=== PATIENT | female | born 1985 | race Caucasian/White ===

== ENCOUNTER → 2021-06-08 08:23 | Outpatient (CLI) | payer OTHER, SELFPAY ==
--- NOTE | ~2021-06-08 | US_ITS ---
EXAMINATION: US thyroid DATE: 06/08/2021 08:36 INDICATION: Nontoxic single thyroid nodule. TECHNIQUE: Multiple ultrasound images of the thyroid were obtained. COMPARISON: None. FINDINGS: The right thyroid lobe measures 4.9 x 1.3 x 1.4 cm. The left thyroid lobe measures 5.0 x 1.0 x 2.0 c m. In the right thyroid lobe, there is a 4 mm nodule. IMPRESSION: 1. Small thyroid nodule, likely not clinically significant. No follow-up is needed. Reviewed, dictated and finalized at location A. [employer] IMPRESSION: 1. Small thyroid nodule, likely not clinically significant. No follow-up is nee ded.
== END ==
PROVIDERS: PCP Nurse Practitioner Adult Health; Visit Provider Nurse Practitioner Adult Health
DX: E04.1 Nontoxic single thyroid nodule (principal)
CPT/HCPCS: 76536

== ENCOUNTER → 2022-05-17 09:10 | Outpatient (CLI) | payer OTHER, SELFPAY ==
--- NOTE | ~2022-05-17 | CT_ITS ---
EXAMINATION: CT sinus wo con DATE: 05/17/2022 09:24 INDICATION: Sinusitis TECHNIQUE: Computed tomography (CT) of the paranasal sinuses was performed without intravenous contra st. The dose-length product was 288.85 mGy-cm. Automated exposure control and iterative reconstructio n technique were employed. COMPARISON: None FINDINGS: There are small air-fluid levels within the maxillary sinuses bilaterally. Minimal mucosal thickening of the sphenoid sinuses. Rightward nasal septal deviation. Mastoids are pneumatized. Ostio meatal units are patent. IMPRESSION: 1. Mild sinusitis, mainly affecting the maxillary sinuses, possibly acute. Reviewed, dictated and finalized at location B.
== END ==
PROVIDERS: PCP Nurse Practitioner Adult Health; Visit Provider Otolaryngology
DX: J32.9 Chronic sinusitis, unspecified (principal)
CPT/HCPCS: 70486

== ENCOUNTER 2022-07-16 11:39 | Emergency (ER) | payer OTHER, SELFPAY ==
[2022-07-16 11:52] VITALS: BP 118/59; PULSE 70; RESP 16; TEMP 36.3; O2SAT 99
--- NOTE | 2022-07-16 12:46 | ED.URI ---
HPI - URI/Sore Throat General Chief Complaint: Upper Respiratory Infection Stated Complaint: Sinus/ Ears Irritation Time Seen by Provider: 07/16/22 12:48 Source: patient, RN notes reviewed and old records reviewed Mode of arrival: ambulatory Limitations: no limitations History of Present Illness HPI Narrative: 37-year-old female presents to the [facility] with complaints sinus pressure and ear discomfort for 4 days. States that she wants to be better by Monday when she travels to [place]. Has a history of chronic sinus issues. Started taking Zyrtec a couple of days ago. States that she has used her Flonase. Related Data Home Medications Medication Instructions Recorded Confirmed Fish Oil 1,290 mg PO DAILY 07/10/19 04/26/22 Lactobacillus rhamnosus GG 10 1 cap PO DAILY 07/10/19 04/26/22 billion cell capsule (Culturelle) multivit with minerals-iron 18 1 tablet PO DAILY 07/10/19 04/26/22 mg-folic ac 400 mcg-vit K 25 mcg tablet (Multi-Day Plus Minerals) Allergies Allergy/AdvReac Type Severity Reaction Status Date / Time No Known Allergies Allergy Mild Verified 04/26/22 10:43 Review of Systems Review of Systems: All systems reviewed & are unremarkable except as noted in HPI and below Constitutional: Constitutional: Reports no additional constitutional complaints Eyes: Eyes: Reports no additional eye complaints ENT: Reports as per HPI, Reports otalgia and Reports nasal congestion Cardiovascular: Cardiovascular: Reports no additional cardiovascular complaints, Denies chest pain and Denies dyspnea Respiratory: Respiratory: Reports no additional respiratory complaints, Denies chest congestion, Denies cough and Denies dyspnea Gastrointestinal: Gastrointestinal: Reports no additional gastrointestinal complaints, Denies abdominal pain, Denies nausea and Denies vomiting Musculoskeletal: Musculoskeletal: Reports no additional musculoskeletal complaints Integumentary/Breasts: Skin/Breast: Reports system reviewed and no additional complaints, except as docu Neurologic: Reports system reviewed and no additional complaints, except as documented Psychiatric: Psychiatric: Reports no additional psychiatric complaints Allergic/Immunologic: Allergic/Immunologic: Reports no additional allergic/immunologic complaints PMFSH Past Medical History Medical History GERD (gastroesophageal reflux disease) Obesity Social History Social History Smoking status: Never smoker Alcohol intake: never Substance use: never Comments At the time of my signature, I reviewed and agree with the nursing past medical, surgical, social, and family history. There is no relevant family history pertinent to the patient complaint. Exam Const: General: cooperative, healthy appearing, comfortable, no acute distress, well developed, alert and well nourished Nutritional Appearance: well nourished Orientation/consciousness: patient oriented x3 Limitations: no limitations HENMT: Head: normal to inspection Ears: hearing grossly normal bilaterally, external ears normal and TM abnormal with fluid behind the TM bilateral; not bulging, not bullous, not dull, not with effusion and not erythematous Face/Nose/Sinus: Normal external nose present, Normal nares present, Normal nasal mucous membranes and turbinates present and normal facial exam Face and sinus: normal facial exam Mouth: Yes Normal oral and palatal mucosa present, Yes lip normal and Yes moist mucous membranes Throat: posterior oropharynx normal, uvula midline, postnasal drainage and no uvular edema Eyes: General: appearance normal, both eyes and all related structures Alignment and Position: alignment normal Periorbital: periorbital findings normal Conjunctivae: conjunctivae normal Pupils: Equal, round and reactive pupils present EOM: EOMs intact bilaterally Neck: Neck: n
== END 2022-07-16 13:03 | disposition home or self-care (01) ==
PROVIDERS: Emergency Provider Nurse Practitioner; PCP Nurse Practitioner Adult Health
DX: J32.9 Chronic sinusitis, unspecified (principal); K21.9 Gastro-esophageal reflux disease without esophagitis; E66.9 Obesity, unspecified; Z68.29 Body mass index [BMI] 29.0-29.9, adult
CPT/HCPCS: 99213; G0463

== ENCOUNTER 2022-08-19 03:48 | Day surgery (SDC) | payer OTHER, SELFPAY ==
[2022-08-09 10:21] VITALS: BMI 29.0
--- NOTE | 2022-08-09 10:40 | PC.NURSE ---
Report to the Outpatient Waiting Room, entrance under the green pavilion located off [facility] [place], at 0830 on 08-19-22. Planned Procedure Time: 1030. Time changes happen often and if your time is changed the preop area will call you the afternoon before. - You and your visitor will be asked to self-screen and do not enter if you have any COVID symptoms. - Only one visitor is requested with a max of two and NO children visitors are allowed at this time. - The patient visitor may be requested to leave or wait in car when not with patient due to distancing restrictions. - A mask is optional within the hospital. Patients may have clear liquids (water, carbonated beverages, clear teas, apple juice) until 3 hours prior to surgery with a maximum of 20 ounces. 0730 - No food from midnight until time of surgery - Infants may have breast milk until 4 hours before surgery, infant formula 6 hours prior to surgery. - Children will be allowed to drink immediately following surgery. If applicable, please bring a bottle or sippy cup to assist with drinking. Juice, water, soda, and popsicles are readily available. For infants on formula, please bring formula the day of surgery. Pacifiers are allowed. Take the following medications with a SIP of water the morning of surgery: None Medications to discontinue per physician: vitamins and supplements Date to take last dose: 08-16-22 Please no make-up, nail ecuadorean, hairspray, perfume, deodorant, or body powder the day of surgery. No jewelry (including any body piercings) or valuables the day of surgery, leave them at home. Please take a shower or bath the night before, or the morning of, surgery with an antibacterial soap. Wear comfortable, loose fitting clothing. Children are encouraged to wear pajamas. - Jewelry must be removed prior to entering the operating room. Rings and piercings that are not removed may be cut off. - The hospital will not accept responsibility for valuables. - Please leave all valuables, including medications, at home the day of surgery. If you are going home after surgery, a licensed pizza delivery driver must drive you home. - NO public transportation without another adult if you receive anesthesia. - We recommend that an adult stay with you for 24 hours following discharge. - We also recommend that you do not drive, make important decision, drink alcoholic beverages, or take any drugs that were not prescribed by your health care provider for at least 24 hours after your discharge time. For Pediatric surgeries, we recommend two adults accompany the child home. Follow any additional instructions given to you from your surgeon. If you or anyone in your household have experienced Covid symptoms in the past week, please notify your surgeon or the nurse liaison at the phone number below for possible testing. Telephone instructions given to Pallavi Collins and asked if any additional questions and then verbalized understanding. Patient advised to call surgeon office or pre surgery nurse liaison [phone] if any additional questions.
--- NOTE | 2022-08-18 13:52 | WPDANESEPPF ---
Anes - Initial Pre Proc Eval Procedure: Operation Date: 08/19/22 10:30 Proposed Procedures p Septoplasty, - Yoandy Woods MD s Bilateral Inferior Turbinectomy, Left Maxillary Antrostomy without Tissue Removal - Yoandy Woods MD Date/Time: 08/18/22 13:52 Surgeon: Yoandy Woods MD Pre Op Diagnosis: septal deviation, turbinate hpertrophy Patient Data Age: 37 Gender: F Height: 1.68 m Weight: 81.65 kg Allergies Allergy/AdvReac Type Severity Reaction Status Date / Time No Known Allergies Allergy Mild Verified 08/19/22 08:44 Home Medications Medication Instructions Recorded Confirmed Type magnesium oxide 500 mg capsule 500 mg PO DAILY 07/27/22 08/19/22 History vitamin B complex (B 1 tablet PO DAILY 07/27/22 08/19/22 History Complex-Vitamin B12 tablet) cholecalciferol (vitamin D3) 125 125 mcg PO DAILY 08/09/22 08/19/22 History mcg (5,000 unit) tablet (Vitamin D3) fluticasone propionate 50 1 - 2 spray intranasal Q12H PRN 08/09/22 08/19/22 History mcg/actuation nasal Sinus Symptoms spray,suspension (Flonase Allergy Relief) lactobacillus combination no.8 3 3 cell PO DAILY 08/09/22 08/19/22 History billion cell capsule multivitamin with minerals-folic 1 tablet PO DAILY 08/09/22 08/19/22 History acid 0.4 mg tablet Patient hx anesthesia problems: none Family hx anesthesia problems: none Results Review: All pre-operative results and documents have been reviewed as part of the pre-operative evaluation. [facility] Past Medical History Medical History GERD (gastroesophageal reflux disease) Obesity Social History Social History (Updated 07/27/22 @ 10:35 by Lisa Randolph CMA) Smoking status: Never smoker Second hand tobacco smoke exposure: No Alcohol intake: current Alcohol use details: rarely Substance use: never Substance use type: does not use Lack of Transportation: No Lack of Food: Never True Current Housing: I Have Housing Concerned About Future Housing: No Difficulty Paying Gas/Electric Bills: No Difficulty Paying for Meds: No Currently Unemployed: No Education: Associate Degree Difficulty w/ Childcare or Family Care: No Living arrangements: with family Spiritual care concerns: No Anes - Eval Final PreProcedure Day of Procedure 08/18/22 13:52 Patient weight: overweight Heart: regular rate and rhythm Lungs: clear to auscultation Airway: Mallampati scale class II Neurological: alert and oriented Last oral intake: >/= 8 hours ASA classification: II Emergent: no Anesthetic plan: proceed Anesthesia type and monitoring: general ETT and standard monitoring Results Review: All pre-operative results and documents have been reviewed as part of the pre-operative evaluation. Informed Consent: The patient's anesthetic plan and its attendant risks and benefits were discussed with the patient/family/POA. Questions were solicited and answers provided to the satisfaction of the patient/family/POA.
--- NOTE | 2022-08-18 16:35 | PM.IMHP ---
H&P: HPI History of Present Illness Date/Time: 08/18/22 16:35 Chief Complaint: Septal deviation turbinate hypertrophy nasal obstruction nasal congestion Narrative: planned surgical procedure Review of Systems Review of Systems: All systems reviewed & are unremarkable except as noted in HPI and below [facility] Past Medical History Medical History GERD (gastroesophageal reflux disease) Obesity Social History Social History (Updated 07/27/22 @ 10:35 by Lisa Randolph CMA) Smoking status: Never smoker Second hand tobacco smoke exposure: No Alcohol intake: current Alcohol use details: rarely Substance use: never Substance use type: does not use Lack of Transportation: No Lack of Food: Never True Current Housing: I Have Housing Concerned About Future Housing: No Difficulty Paying Gas/Electric Bills: No Difficulty Paying for Meds: No Currently Unemployed: No Education: Associate Degree Difficulty w/ Childcare or Family Care: No Living arrangements: with family Spiritual care concerns: No Meds Home Medications and Allergies Home Medications Medication Instructions Recorded Confirmed Type magnesium oxide 500 mg capsule 500 mg PO DAILY 07/27/22 08/09/22 History vitamin B complex (B 1 tablet PO DAILY 07/27/22 08/09/22 History Complex-Vitamin B12 tablet) cholecalciferol (vitamin D3) 125 125 mcg PO DAILY 08/09/22 08/09/22 History mcg (5,000 unit) tablet (Vitamin D3) fluticasone propionate 50 1 - 2 spray intranasal Q12H PRN 08/09/22 08/09/22 History mcg/actuation nasal Sinus Symptoms spray,suspension (Flonase Allergy Relief) lactobacillus combination no.8 3 3 cell PO DAILY 08/09/22 08/09/22 History billion cell capsule multivitamin with minerals-folic 1 tablet PO DAILY 08/09/22 08/09/22 History acid 0.4 mg tablet Allergies Allergy/AdvReac Type Severity Reaction Status Date / Time No Known Allergies Allergy Mild Verified 08/09/22 10:16 Exam Narrative: septal deviation turbinate hypertrophy Assessment and Plan Assessment and plan (1) Deviated nasal septum: Code(s): J34.2 - Deviated nasal septum Status: Acute Assessment and Plan: OR image guided endoscopic left-sided maxillary antrostomy endoscopic assisted septoplasty turbinate reduction outfracture not approved I believe. Risks discussed including bleeding infection damage to surrounding structures need further procedures brain brain damage CSF leak blindness change in vision septal perforation persistent infection and crusting after surgery failure to resolve symptoms (2) Nasal congestion: Code(s): R09.81 - Nasal congestion Status: Acute (3) Hypertrophy of both inferior nasal turbinates: Code(s): J34.3 - Hypertrophy of nasal turbinates Status: Acute (4) Chronic sinusitis: Code(s): J32.9 - Chronic sinusitis, unspecified Status: Acute
[2022-08-19] VITALS (10 sets, daily range): BP systolic 98–117; BP diastolic 50–82; PULSE 63–73; RESP 15–18; TEMP 36.2–36.9; O2SAT 100
--- NOTE | 2022-08-19 07:11 | WPDHPUPDATE1 ---
History and Physical Update Update Date/Time: 08/19/22 07:11 History and Physical has been reviewed, including an updated exam of the patient. There are NO changes in the patient's condition. Risks, benefits, and alternatives have been discussed and questions answered. Patient agrees to proceed with procedure.
[2022-08-19] MEDS: LACTATED RINGERS 1,000 ML 30 ML IV CONT ×2 (09:13→12:53)
[2022-08-19] MEDS: ACETAMINOPHEN 500 MG TABLET 1000 MG PO (09:27)
[2022-08-19] MEDS: SCOPOLAMINE 1.5 MG PATCH TRANSDERM (09:45)
--- NOTE | 2022-08-19 10:40 | SUR.PREOP ---
PATIENT UPDATED ON TIME DELAY
[2022-08-19] MEDS: ceFAZolin 2 GM/D5W 50 ML 2 GM/50 ML BAG IVPB (11:16)
[2022-08-19] MEDS: OXYMETAZOLINE HCL 0.05% NAS 15 ML BTL (*BKC) 1 SPRAY NASAL (11:44)
[2022-08-19] MEDS: MUPIROCIN 2% OINT 22 GM TUBE 1 APPLIC EACH NARE (11:58)
[2022-08-19] MEDS: LIDO 2%/EPINEPHRINE 1:100,000 50 ML VIAL 10 ML INFILTRATE (12:39)
--- NOTE | 2022-08-19 13:07 | W.PM.PROC2 ---
Procedure Note - Detailed Date of Procedure 08/19/22 Pre-op Diagnosis septal deviation, turbinate hpertrophyObstruction nasal congestion left maxillary sinusitis Post-op Diagnosis Same Procedure Performed left endoscopic maxillary antrostomy without tissue remove turbinate reduction submucosally endoscopic assisted septoplasty Surgeon Yoandy Woods MD Anesthesia General Indications see above Findings left disease osteitic bone in the sinus. Deviated septum anteriorly and a caudal deflection bilaterally splayed fashion corrected no opposing perforations turbinate hypertrophy well reduced. Description of Procedure Patient identified consent verified. Patient brought operating. Time-out performed. General anesthesia induced endotracheal tube secured. Patient had bright positioned. Second time-out performed. Afrin-soaked pledgets placed allowed to sit 5 minutes then removed 0 degree endoscope utilized septum deviated anteriorly 10 cc 1% lidocaine 1 100,000 parts epinephrine injected deep and nasal septum. [place] incision made left-sided nasal septal flap elevated 7 Kisw[place]ili suction right nasal septal flap elevated after crossing over with the osteotome deviated septum removed osteotome Shirley forceps Bruno Vasquez forceps. Incision closed with 3 interrupted 5 0 fast gut sutures. Turbinates reduced in the submucosal plane with microdebrider turbinate blade. Left maxilla antrostomy performed with double ball tip probe backbiter straight through microdebrider. Bleeding controlled with intermittent application of Afrin. Blood loss 25 cc. I performed all dictated portions. Nasal no pack placed on the left. Rojas splints placed sutured anteriorly 3-0 mattress suture. Care the patient given. Complications patient PACU Estimated Blood Loss 25 Drains No Packing Yes ( Nova pack) Pathology None sent Complications No immediate complications Condition Stable Disposition PACU [facility] Billing Surgery - Charge Forward: Surgery Billing
[2022-08-19] MEDS: fentaNYL CITRATE INJ (*CRX) 100 MCG/2 ML VIAL 25 MCG IV PUSH ×7 (13:15→13:38)
[2022-08-19] MEDS: ONDANSETRON INJ 4 MG/2 ML VIAL IV PUSH (13:54)
== END 2022-08-19 15:46 | disposition home or self-care (01) ==
PROVIDERS: PCP Nurse Practitioner Adult Health; Visit Provider Otolaryngology
PROC: (CPT 30520; principal; 2022-08-19 10:30)
PROC: (CPT 31256; 2022-08-19 10:30)
DX: J32.0 Chronic maxillary sinusitis (principal); J34.2 Deviated nasal septum; J34.3 Hypertrophy of nasal turbinates; R09.81 Nasal congestion; J34.89 Other specified disorders of nose and nasal sinuses
CPT/HCPCS: 31256; 30140; 30520; A9270; J0330; J0690; J1100; J2250; J2405; J2704; J3010; J7120

== ENCOUNTER 2023-12-30 10:30 | Emergency (ER) | payer OTHER, SELFPAY ==
--- NOTE | 2023-12-30 10:39 | ED.URI ---
HPI - URI/Sore Throat General Chief Complaint: Upper Respiratory Infection Stated Complaint: Fever,Chills,Sinus Pressure,Sore Throat Time Seen by Provider: 12/30/23 10:54 Source: patient, RN notes reviewed and old records reviewed Mode of arrival: ambulatory Limitations: no limitations History of Present Illness HPI Narrative: 38-year-old female presents to the [facility] with a 4 day history of sore throat, bilateral ear pressure, congestion, body aches. Had which she reports low-grade fevers. Has taken Marilou D, Naprosyn and has been using her Neti pot. Onset (ago): day(s) (4) Related Data Home Medications Medication Instructions Recorded Confirmed lactobacillus combination no.8 3 3 cell PO DAILY 08/09/22 12/30/23 billion cell capsule multivitamin with minerals-folic 1 tablet PO DAILY 08/09/22 12/30/23 acid 0.4 mg tablet Allergies Allergy/AdvReac Type Severity Reaction Status Date / Time No Known Allergies Allergy Mild Verified 12/30/23 10:37 Review of Systems Review of Systems: All systems reviewed & are unremarkable except as noted in HPI and below Constitutional: Constitutional: Reports as per HPI and Reports body ache(s) Eyes: Eyes: Reports no additional eye complaints ENT: Reports as per HPI, Reports otalgia and Reports sore throat Cardiovascular: Cardiovascular: Reports no additional cardiovascular complaints, Denies chest pain and Denies dyspnea Respiratory: Respiratory: Reports no additional respiratory complaints, Denies chest congestion, Denies cough and Denies dyspnea Gastrointestinal: Gastrointestinal: Reports no additional gastrointestinal complaints, Denies abdominal pain, Denies nausea and Denies vomiting Musculoskeletal: Musculoskeletal: Reports no additional musculoskeletal complaints Integumentary/Breasts: Skin/Breast: Reports system reviewed and no additional complaints, except as docu Neurologic: Reports system reviewed and no additional complaints, except as documented Psychiatric: Psychiatric: Reports no additional psychiatric complaints Allergic/Immunologic: Allergic/Immunologic: Reports no additional allergic/immunologic complaints PMFSH Past Medical History Medical History GERD (gastroesophageal reflux disease) Obesity Social History Social History Smoking status: Never smoker Second hand tobacco smoke exposure: No Alcohol intake: current Alcohol use details: rarely Substance use: never Substance use type: does not use Lack of Transportation: No Lack of Food: Never True Current Housing: I Have Housing Concerned About Future Housing: No Difficulty Paying Gas/Electric Bills: No Difficulty Paying for Meds: No Currently Unemployed: No Education: Associate Degree Difficulty w/ Childcare or Family Care: No Living arrangements: with family Spiritual care concerns: No Comments At the time of my signature, I reviewed and agree with the nursing past medical, surgical, social, and family history. There is no relevant family history pertinent to the patient complaint. Exam Const: General: cooperative, healthy appearing, comfortable, no acute distress, well developed, alert and well nourished Nutritional Appearance: well nourished Orientation/consciousness: patient oriented x3 Limitations: no limitations HENMT: Head: normal to inspection Ears: hearing grossly normal bilaterally, external ears normal, EAC's normal, mastoids normal, no periauricular adenopathy and TM abnormal bulging on the right and with fluid behind the TM bilateral (Greater on the right in a) Face/Nose/Sinus: Normal external nose present, Normal nares present, Normal nasal mucous membranes and turbinates present, normal facial exam and face symmetric Face and sinus: normal facial exam and face symmetric Mouth: Yes Normal oral and palatal mucosa present, Yes lip n
[2023-12-30 10:43] VITALS: BP 112/70; PULSE 70; RESP 16; TEMP 36.8; O2SAT 100
[2023-12-30 10:46] VITALS: BP 112/70; PULSE 70; RESP 16; TEMP 36.8; O2SAT 100
== END 2023-12-30 11:15 | disposition home or self-care (01) ==
PROVIDERS: Emergency Provider Nurse Practitioner
DX: H65.03 Acute serous otitis media, bilateral (principal); J06.9 Acute upper respiratory infection, unspecified; K21.9 Gastro-esophageal reflux disease without esophagitis; E66.9 Obesity, unspecified; Z68.27 Body mass index [BMI] 27.0-27.9, adult
CPT/HCPCS: 87081; 87880; 99213; G0463

== ENCOUNTER 2024-04-09 19:24 | Emergency (ER) | payer OTHER, SELFPAY ==
[2024-04-09 19:35] VITALS: BP 101/74; PULSE 75; RESP 16; TEMP 36.9; O2SAT 100
--- NOTE | 2024-04-09 19:52 | ED.URI ---
HPI - URI/Sore Throat General Chief Complaint: Upper Respiratory Infection Stated Complaint: Sore Throat Time Seen by Provider: 04/09/24 19:40 Source: patient Mode of arrival: ambulatory Limitations: no limitations History of Present Illness HPI Narrative: Pallavi is a 38-year-old female patient presenting to the clinic today with complaints of a sore throat. 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 She denies any fever, chills, cough. MD elicited complaint: sore throat and nasal congestion Related Data Home Medications Medication Instructions Recorded Confirmed lactobacillus combination no.8 3 3 cell PO DAILY 08/09/22 04/09/24 billion cell capsule multivitamin with minerals-folic 1 tablet PO DAILY 08/09/22 04/09/24 acid 0.4 mg tablet Allergies Allergy/AdvReac Type Severity Reaction Status Date / Time No Known Allergies Allergy Mild Verified 04/09/24 19:35 Review of Systems Review of Systems: Pertinent positives per HPI. Patient denies any fever, chills, rash, headache, visual changes, dizziness, cough, shortness of breath, chest pain, palpitations, nausea, vomiting, diarrhea, constipation, abdominal pain, or any urinary issues. PMFSH Past Medical History Medical History GERD (gastroesophageal reflux disease) Obesity Social History Social History Smoking status: Never smoker Second hand tobacco smoke exposure: No Alcohol intake: current Alcohol use details: rarely Substance use: never Substance use type: does not use Lack of Transportation: No Lack of Food: Never True Current Housing: I Have Housing Concerned About Future Housing: No Difficulty Paying Gas/Electric Bills: No Difficulty Paying for Meds: No Currently Unemployed: No Education: Associate Degree Difficulty w/ Childcare or Family Care: No Living arrangements: with family Spiritual care concerns: No Comments At the time of my signature, I reviewed and agree with the nursing past medical, surgical, social, and family history. There is no relevant family history pertinent to the patient complaint. Exam Narrative: General: Well-developed, well nourished, in no apparent distress Head: Normocephalic, atraumatic Eyes: Pupils equally round and reactive to light bilaterally, EOM intact, sclera and conjunctive clear, no discharge, lids normal Ears: TMs intact and clear, ear canals clear, no drainage, grossly hearing normal. Nose: Nares patent, clear discharge, no inflammation, no sinus tenderness. Mouth: Oral pharynx red without lesions or masses, good dentition, MMM. Neck: Supple, trachea midline, no enlargement of anterior or posterior cervical nodes, no thyroid masses or goiter palpable. Cardio: Regular rate and rhythm, s1 and s2 normal, no murmur appreciated. Resp: Clear to auscultation bilaterally, no rhonchi, rales, wheezing or rubs Course Course Emergency Course: Portions of this record may have been created with voice recognition software. Level of Care: Express Care Visit Vital Signs Vital signs: Vital Signs Temperature 36.9 C 04/09/24 19:35 Pulse Rate 75 04/09/24 19:35 Respiratory Rate 16 04/09/24 19:35 Blood Pressure 101/74 04/09/24 19:35 Pulse Oximetry 100 04/09/24 19:35 Oxygen Delivery Room Air 04/09/24 19:35 Temperature 36.9 C 04/09/24 19:35 Pulse Rate 75 04/09/24 19:35 Respiratory Rate 16 04/09/24 19:35 Blood Pressure 101/74 04/09/24 19:35 Pulse Oximetry 100 04/09/24 19:35 Oxygen Delivery Room Air 04/09/24 19:35 Vital signs reviewed MDM - URI/Sore Throat MDM Narrative Medical decision making narrative: At the time of visit patient is resting comfortably on the exam table. Patient appears to be nontoxic. Labs: Strep test was negative in the clinic today. We will send strep for cu
[2024-04-09 19:59] LABS: EDSTREPNEGPOS1 Negative (Negative)
== END 2024-04-09 20:03 | disposition home or self-care (01) ==
PROVIDERS: Emergency Provider Nurse Practitioner Family; PCP Physician Assistant
DX: J02.9 Acute pharyngitis, unspecified (principal); K21.9 Gastro-esophageal reflux disease without esophagitis; E66.9 Obesity, unspecified; Z68.27 Body mass index [BMI] 27.0-27.9, adult
CPT/HCPCS: 87081; 87880; 99213; G0463

== ENCOUNTER 2024-05-24 09:21 | Emergency (ER) | payer OTHER, SELFPAY ==
--- NOTE | ~2024-05-24 | XR_ITS ---
EXAMINATION: XR chest 2V DATE: 05/24/2024 10:49 INDICATION: Chest pain. TECHNIQUE: Frontal and lateral views of the chest were obtained. COMPARISON: Chest single view 05/26/2021 FINDINGS: There is no pneumonia, pleural effusion, or pneumothorax. The heart size is normal. IMPRESSION: 1. No acute cardiopulmonary disease. Reviewed, dictated and finalized at location B.
--- NOTE | 2024-05-24 09:39 | ECG_ITS ---
Test Date: 2024-05-24 09:42:59 Measurements Intervals [place] Rate: 78 P: 77 VA: 144 QRS: 71 QRSD: 87 T: 60 QT: 370 QTc: 423 Interpretive Statements SINUS RHYTHM BASELINE ARTIFACT- I, II, III, AVR, AVL, AVF NORMAL ECG No previous ECG available for comparison Electronically Signed On 05-24-2024 10:30:11 CDT by Shahzad Kahn D.O.
[2024-05-24 09:43] VITALS: BP 115/59; PULSE 79; RESP 17; TEMP 36.7; O2SAT 100
[2024-05-24 09:53] LABS: Basophils Percent Auto 0.7 % (0.2-1.2); Eosinophils Absolute Auto 0.2 K/mm3 (0-0.3); Eosinophils Percent Auto 4.5 % (0-4.4); Hemoglobin 13.2 g/dL (12.0-15.0); Immature Granulocyte Absolute 0.01 K/mm3 (0.00-0.031); Immature Granulocyte Percent A 0.2 % (0-0.5); Lymphocytes Absolute Auto 1.16 K/mm3 (0.9-3.2); Mean Corpuscular Hemoglobin 28.1 pg (26-34); Mean Corpuscular Volume 85.3 fl (80-100); Mean Platelet Volume 9.4 fl (7.4-10.4); Monocytes Absolute Auto 0.3 K/mm3 (0.1-0.6); Monocytes Percent Auto 6.1 % (2.6-8.5); Neutrophils Absolute Auto 2.8 K/mm3 (1.3-6.7); Neutrophils Percent Auto 62.5 % (45.5-73.1); Platelet Count Result 210 k/mm3 (150-375); Red Blood Count 4.69 M/mm3 (4.2-5.4); Red Cell Distribution Width 12.8 % (11.5-14.5); White Blood Count 4.5 K/mm3 (4.5-10.0)
[2024-05-24 10:08] LABS: Alanine Aminotransferase 16 U/L (6-35); Albumin Level 4.6 g/dL (3.5-5.1); Alkaline Phosphatase 56 U/L (38-126); Anion Gap 7 mmol/L (4-12); Aspartate Amino Transferase 26 U/L (14-36); Bilirubin,Total 1.2 mg/dL (0.2-1.3); Blood Urea Nitrogen 14 mg/dL (7-17); Calcium 9.2 mg/dL (8.4-10.2); Carbon Dioxide 27 mmol/L (22-30); Chloride 103 mmol/L (98-107); Estimated CRCL calculation 87 ml/min; Estimated Glomerular Filt Rate > 60; Glucose 88 mg/dL (65-110); Lipase 89 U/L (23-300); Potassium 3.7 mmol/L (3.4-5.0); Sodium 137 mmol/L (137-145)
[2024-05-24 10:19] LABS: Troponin I < 0.012 ng/mL (0.000-0.034)
[2024-05-24 10:31] LABS: INR 0.9; Prothrombin Time 12.8 Seconds (11.1-14.7)
[2024-05-24 10:33] VITALS: BP 105/65; PULSE 59; RESP 18; O2SAT 100
[2024-05-24 11:30] VITALS: BP 111/67; PULSE 63; RESP 16; O2SAT 100
--- NOTE | 2024-05-24 11:44 | ED.ARRPALP ---
HPI - Arrhythmia/Palpitations General Chief Complaint: Arrhythmia/Palpitations Stated Complaint: tachycardia Time Seen by Provider: 05/24/24 11:07 Source: patient and family ( Giovanny) Mode of arrival: ambulatory Limitations: no limitations History of Present Illness HPI narrative: patient presents with reports of episodes of palpitations and fluttering sensation. episodes especially occurring at night. Some of it episodes are short/ brief but often they last for hours. No leg swelling. She has had decreased sleep as result. Her grandparents had chronic atrial fibrillation she states a.m. sister might of had atrial fibrillation although she then states that it was PACs. She has another sister with PVCs. She had a lump removed from her breast scheduled coming up. she recently underwent endoscopy was diagnosed with gastritis and underwent a breast biopsy at the same time. For this, she states that she was placed under general anesthesia. She has some mild associated left-sided chest pain that radiates into her left collarbone ( clarified not sure whether as initially indicated at triage). no shortness of breath at rest but she does feel more winded with exertion. She has also been experiencing intermittent dizziness although not currently. For her history of these palpitations, she has an appointment with a supervisor shaving and splitting scheduled for Monday through [facility] in [place] although she has never previously seen established with a supervisor shaving and splitting. She had recently starting medication pantoprazole 40 mg every morning. thyroid issues run in her family but not for her personally diagnosed. She does not have a history of hypertension, hyperlipidemia, myocardial infarction, TIA, CVA, diabetes mellitus. No family history of myocardial infarction before the age of 65 in a parent, similar in her are child. She is not obese. She does not smoke. Related Data Home Medications Medication Instructions Recorded Confirmed lactobacillus combination no.8 3 3 cell PO DAILY 08/09/22 04/09/24 billion cell capsule multivitamin with minerals-folic 1 tablet PO DAILY 08/09/22 04/09/24 acid 0.4 mg tablet Allergies Allergy/AdvReac Type Severity Reaction Status Date / Time No Known Allergies Allergy Mild Verified 04/09/24 19:35 [facility] Past Medical History Medical History Gastritis GERD (gastroesophageal reflux disease) Obesity Surgical History Surgical History History of esophagogastroduodenoscopy (EGD) April 2024 Family History Family History (Updated 05/24/24 @ 12:03 by Merly Fitzgerald MD) Father Hypertension Sibling PAC (premature atrial contraction) Sibling PVC (premature ventricular contraction) Grandparent Chronic a-fib Grandparent Chronic a-fib Social History Social History Smoking status: Never smoker Second hand tobacco smoke exposure: No Alcohol intake: current Alcohol use details: rarely Substance use: never Substance use type: does not use Lack of Transportation: No Lack of Food: Never True Current Housing: I Have Housing Concerned About Future Housing: No Difficulty Paying Gas/Electric Bills: No Difficulty Paying for Meds: No Currently Unemployed: No Education: Associate Degree Difficulty w/ Childcare or Family Care: No Living arrangements: with family Additional living arrangements comments: Giovanny Spiritual care concerns: No Exam Narrative: GENERAL: Well-appearing, well-nourished, and in no acute distress. HEAD: Normocephalic, atraumatic. EYES: Non injected, non icteric ENT: Nares clear, no rhinorrhea or epistaxis. NECK: Supple. CHEST: Speaking in full sentences. No respiratory distress. lungs clear to auscultation bilaterally without appreciable wheezes, crackles, or focal consolidation HEART: Regular rate and rhythm. . ABDOMEN: Soft, nondistended. EXTREMITIES: Normal range of motion. No bilateral lower extremity edema. SKIN: Warm, dry, no rash. NEURO: No focal deficits. Alert and oriented x3. PSYCH: Normal mood and affect. Course Vital Signs Vital signs: Vital Signs Temperature 98.0 F 05/24/24 09:43 Pulse Rate 79 05/24/24 09:43 Respiratory Rate 17 05/24/24 09:43 Blood Pressure 115/59 L 05/24/24 09:43 Pulse Oximetry 100 05/24/24 09:43 Oxygen Delivery Room Air 05/24/24 09:43 Temperature 98.0 F 05/24/24 09:43 Pulse Rate 80 05/24/24 13:41 Respiratory Rate 17 05/24/24 13:41 Blood Pressure 125/94 H 05/24/24 13:41 Pulse Oximetry 98 05/24/24 13:41 Oxygen Delivery Room Air 05/24/24 10:30 MDM - Arrhythmia/Palpitations MDM Narrative Medical decision making narrative: Patient presents with palpitations. In the emergency department she is afebrile with acceptable vital signs, only a very slightly decreased diastolic blood pressure. PERC Rule Age greater than or equal to 50: 0 HR greater than or equal to 100: 0 O2 sat room air <95%: 0 Unilateral leg swellin Hemoptysis: 0 Recent surgery or trauma less than 4 wks ago requiring tx with general anesthesia:1 (endoscopy and biopsy performed) Prior PE or DVT:0 Hormone use (OCP, HRT or estrogenic hormone use in M/F patients): 0 1 point Wells' Score for PE: Clinical S/S DVT (No 0, Yes +3) 0 PE #1 Dx OR equally likely (No 0, Yes +3) 0 HR >100 (No 0, Yes +1.5) 0 Immobiliazation at least 3 d OR surgery prev 4 wks (No 0, Yes +1.5) 1.5 Previous Dx DVT/PE (No 0, Yes +1.5): 0 Hemoptysis (No 0, Yes +1): 0 Malignancy w/ Tx within 6 mos or palliative (No 0, Yes +1):0 Very Low risk but out of an abundance of precaution we will obtain a D-dimer. This is within normal limits. No electrolyte abnormalities. HEART SCORE History 2 highly suspicious 1 moderately suspicious 0 slightly suspicious History score0 ECG [address] depression/elevation not due to LBBB, LVH, or digoxin [address] depression but LBBB, LVH, nonspecific repolarization changes 0 normal ECG score 0 Age 2 >/= 65 1 45-64 0 <45 Age score 0 Risk factors (HTN, hypercholesterolemia, DM, obesity with BMI >30, current smoker or cessation </=3mo), positive fam hx with parent or sibling with CVD before age 65, atherosclerotic disease (prior NC, PCI/CABG, CVA/TIA, or peripheral arterial disease) 2 >/= 3 risk factors or history of atherosclerotic dz 1 - 1-2 risk factors 0 no known risk factors Risk factor score 0 Initial Troponin 2 >3 times normal limit 1 1-3 times normal limit 0 less than or equal to normal limit Troponin score 0 Total HEART Score 0. Repeat troponin negative. TSH normal. Cardiac monitoring during ED visit, frequently assessed on telemetry and without notable arrhythmia. Discharged in stable condition and advised to keep upcoming cardiology appointment. Differential Diagnosis Differential diagnosis: Likely palpitations, anxiety, sinus tachycardia, artial fibrillation, artial flutter, ventricular premature beats, supraventricular tachycardia, ventricular tachycardia, WPW and other (thyroid abnormalities, pericarditis/myositis) Lab Data Attestation: I reviewed the patient's lab results. 05/24/24 09:48 05/24/24 09:48 Labs: Lab Results 05/24/24 05/24/24 Range/Units 09:48 12:06 WBC 4.5 (4.5-10.0) K/mm3 RBC 4.69 (4.2-5.4) M/mm3 Hgb 13.2 (12.0-15.0) g/dL Hct 40.0 (37.0-47.0) % MCV 85.3 (80-100) fl MCH 28.1 (26-34) pg MCHC 33.0 (32-36) g/dl RDW 12.8 (11.5-14.5) % Plt Count 210 (150-375) k/mm3 MPV 9.4 (7.4-10.4) fl Immature Gran % (Auto) 0.2 (0-0.5) % Neut % (Auto) 62.5 (45.5-73.1) % Lymph % (Auto) 26.0 (18.3-44.2) % [place] % (Auto) 6.1 (2.6-8.5) % Eos % (Auto) 4.5 H (0-4.4) % Baso % (Auto) 0.7 (0.2-1.2) % Lymph # (Auto) 1.16 (0.9-3.2) K/mm3 [place] # (Auto) 0.3 (0.1-0.6) K/mm3 Eos # (Auto) 0.2 (0-0.3) K/mm3 Baso # (Auto) 0.0 (0.0-0.1) K/mm3 Abs Immat Gran (auto) 0.01 (0.00-0.031) K/mm3 Absolute Neuts (auto) 2.8 (1.3-6.7) K/mm3 Absolute Nucleated RBC 0.000 (0.0-0.012) K/mm3 Nucleated RBC % 0.0 (0.0-0.2) % PT 12.8 (11.1-14.7) Seconds INR 0.9 APTT 28.0 (22.3-36.8) Seconds D-Dimer 0.41 (<0.48) ug/mL Sodium 137 (137-145) mmol/L Potassium 3.7 (3.4-5.0) mmol/L Chloride 103 (98-107) mmol/L Carbon Dioxide 27 (22-30) mmol/L Anion Gap 7 (4-12) mmol/L BUN 14 (7-17) mg/dL Creatinine 0.70 (0.7-1.0) mg/dL Estim Creat Clear Calc 87 ml/min Estimated GFR > 60 (59 - ) Glucose 88 (65-110) mg/dL Calcium 9.2 (8.4-10.2) mg/dL Magnesium 2.0 (1.6-2.3) mg/dL Total Bilirubin 1.2 (0.2-1.3) mg/dL AST 26 (14-36) U/L ALT 16 (6-35) U/L Alkaline Phosphatase 56 (38-126) U/L Troponin I < 0.012 < 0.012 (0.000-0.034) ng/mL NT-Pro-B Natriuret Pep 67 (19.9-100) pg/mL Total Protein 8.0 (6.3-8.2) g/dL Albumin 4.6 (3.5-5.1) g/dL Lipase 89 (23-300) U/L TSH 0.966 (0.465-4.680) uIU/mL Serum HCG, Qual Negative Influenza A (RT-PCR) Negative (Negative) Influenza B (RT-PCR) Negative (Negative) RSV (RT-PCR) Negative (Negative) SARS-CoV-2 RNA (RT-PCR) Negative (Negative) Imaging Data Radiologist's impression: Impressions Chest X-Ray 05/24/24 10:54 IMPRESSION: 1. No acute cardiopulmonary disease. ECG Data EKG #1: Attestation: I personally reviewed and interpreted this ECG as follows: ECG completion date: 05/24/24 ECG completion time: 09:42 Interpretation: Normal sinus rhythm at a rate of 78 beats per minute, NV interval 144, QRS 87, QT/QTC 370/404. Good R-wave progression across the precordial leads, no T-wave inversions. Normal ECG Discharge Plan Discharge Clinical Impression: Palpitations Patient Disposition: Home, Self-Care Condition: Stable Instructions: Antibiotic Form, Heart Palpitations (DC) Additional Instructions: As we discussed, your workup as not identified the etiology of your symptoms. It does appear that pantoprazole can sometimes cause the symptoms but typically if it causes your magnesium to go low but your magnesium was fine. Keep your upcoming appointment with supervisor shaving and splitting on Monday. Return to the emergency department with any new or worsening symptoms. Prescriptions: No Action multivit with min-folic acid 0.4 mg Tablet 1 tablet PO DAILY lactobacillus combination no.8 3 billion cell Capsule 3 cell PO DAILY Follow-up/Referrals: Azar,SYL Her [Primary Care Provider] - Stand Alone Forms: Work/School Release IP Time of Disposition: 13:19
[2024-05-24 12:34] LABS: D Dimer 0.41 ug/mL (<0.48); NT Pro B Type Natriuretic Pept 67 pg/mL (19.9-100)
[2024-05-24 12:37] LABS: Troponin I < 0.012 ng/mL (0.000-0.034)
[2024-05-24 12:43] LABS: SPREG INTERNAL CONTROL Positive; Serum Qual hCG Negative
[2024-05-24 12:52] LABS: Influenza A QL RT-PCR Negative (Negative); Influenza B QL RT-PCR Negative (Negative); RSV RNA, RT-PCR Negative (Negative); SARS-CoV-2 RNA PCR Negative (Negative)
[2024-05-24 12:56] LABS: Thyroid Stimulating Hormone 0.966 uIU/mL (0.465-4.680)
[2024-05-24 13:41] VITALS: BP 125/94; PULSE 80; RESP 17; O2SAT 98
== END 2024-05-24 13:42 | disposition home or self-care (01) ==
PROVIDERS: Emergency Provider Student in an Organized Health Care Education/Training Program; PCP Physician Assistant
DX: R00.2 Palpitations (principal); K21.9 Gastro-esophageal reflux disease without esophagitis; E66.9 Obesity, unspecified; Z68.26 Body mass index [BMI] 26.0-26.9, adult; R06.89 Other abnormalities of breathing; R07.9 Chest pain, unspecified
CPT/HCPCS: 36415; 71046; 80053; 83690; 83735; 83880; 84443; 84484; 84703; 85025; 85380; 85610; 85730; 87637; 93005; 99284

== ENCOUNTER 2025-04-02 08:19 | Emergency (ER) | payer OTHER, SELFPAY ==
--- NOTE | ~2025-04-02 | CT_ITS ---
CT abdomen pelvis w con Clinical History: umbilical pain x 1 day . Comparison: None Technique: Axial images lung bases to symphysis pubis IV contrast information not listed in PACS Coronal, sagittal reformats CT images acquired with automatic exposure control for dose reduction DLP: 308 mGy-cm Findings: Lung bases: Clear. Visualized heart and pericardium: Unremarkable. Liver: A few tiny hypodense foci too small to characterize. Gallbladder: Unremarkable. Spleen: Unremarkable. Pancreas: Unremarkable. Adrenal glands: Unremarkable. Kidneys: Right kidney- No hydronephrosis. No renal stones. Left kidney- No hydronephrosis. No renal stones. Retroaortic renal vein. Distal esophagus/stomach: Unremarkable. Small bowel loops: Normal caliber and wall thickness. Colon: Normal caliber and wall thickness. Appendix not seen. Nodes: No enlarged nodes. Peritoneum: No ascites. No free air. Urinary bladder: Unremarkable. Uterus: Unremarkable. Nabothian cysts. Adnexa: No masses. Cystic focus left side. Clip along anterior and another along posterior pelvis, probably tubal ligation clips. Bones: No acute bony abnormality. Soft tissues: Unremarkable. Aorta: No aneurysm or dissection. IVC: Unremarkable. Main portal vein/SMV/splenic vein: Patent. IMPRESSION: 1. No acute findings. Reviewed, dictated and finalized at location R. IMPRESSION: 1. No acute findings.
[2025-04-02 08:37] VITALS: TEMP 36.7
[2025-04-02 08:42] VITALS: BP 101/61; PULSE 60; RESP 18; O2SAT 100
--- OUTSIDE RECORDS SUMMARY | 2025-04-02 08:43 | XMS_ITS | Clinical Summary ---
Author Organization [facility] Address [address] [place] [address] Care Team Providers Care Trip Rider Name Role Phone Ana Medina MD Primary Care Provider +1- [phone] Allergies No known active allergies Medications multivit-mineral s/ferrous fum (MULTI VITAMIN ORAL) Take by mouth Active fluconazole (DIFLUCAN) 100 mg tablet 10/17/2022 Active Active Problems Problem Noted Date Diagnosed Date Discharge from nipple 12/26/2022 Knee pain 12/12/2022 12/12/2022 Abdominal pain 12/12/2022 12/12/2022 Allergic rhinitis 12/12/2022 12/12/2022 Dehydration 12/12/2022 12/12/2022 Fatigue 12/12/2022 12/12/2022 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 12/12/2022 Nasal congestion 12/12/2022 12/12/2022 Pain in throat 12/12/2022 12/12/2022 Posterior rhinorrhea 12/12/2022 12/12/2022 Pruritic disorder 12/12/2022 12/12/2022 Seasonal allergies 12/12/2022 12/12/2022 Gastrointestinal candidiasis 10/17/2022 Acid reflux 10/14/2022 12/12/2022 Excessive salivation 10/14/2022 12/12/2022 Plantar fasciitis of left foot 01/18/2021 0 12/12/2022 Irritation of vulva 07/06/2015 Immunizations Immunization Administration Dates Next Due Hep A, Adult 11/30/2010,12/18/2009 Hep B Vaccine 11/30/2010,02/08/2010,12/18/2009 Influenza, Quadrivalent, Spl it, Intramuscular 05/01/2018,05/09/2016,06/17/2015 Influenza, Quadrivalent, Spl it, Preservative Free, Intramuscular 05/03/2022,04/27/2021,04/23/2020,04/22,04/25/2018 Tdap 07/24/2009 Surgical History Surgery Date Site/Laterality Comments [place] DELIVERY ONLY Section - (Added by TW Conv) [place] HYSTEROSCOPY ENDOMETRIAL ABLATION Hysteroscopy With Endometrial Ablation - (Added by TW Conv) [place] LIG/TRNSXJ FLP TUBE ABDL/VAG APPR UNI/BI Tubal Ligation - (Added by TW Conv) TUBAL LIGATION ENDOMETRIAL ABLATION 07/24/2013 - 07/23/2014 Medical History Medical History Date Comments Encounter for screening for other viral diseases Screening for viral disease - (Added by TW Conv) Acid reflux Family History Medical History Relation Name Comments Diabetes type II Father Hypertension Father Hypertension - (Added by TW Conv) No Known Problems Mother Relation Name Status Comments Father Alive Mother Alive Social History Tobacco Use Types Packs/Day Years Used Date Smoking Tobacco: Never Smokeless Tobacco: Never Tobacco Cessation:Counseling Given: Not Answered Alcohol Use Standard Drinks/Week Comments Yes 0 (1 standard drink = 0.6 oz pur e alcohol) Socail AUDIT-C Answer Date Recorded Frequency of Alcohol Consumption Not on file 03/02/2023 Q2: How many drinks containi ng alcohol do you have on a typical day when you are drinking? 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 Gender Identity Not on file Sexual Orientation Not on file Obstetrics History Para Term AB IAB SAB Ectopic Multiple Livin g Live Births 2 2 2 2 2 Date Outcome GA Total Labor Labor/2nd/3rd Weight Sex Type Anes PTL Rosie A1 A5 Name Clin 2010 Term F CS-LT ranv Living Complications:None 2012 Term M CS-LT ranv Living Complications:None Last Filed Vital Signs Vital Sign Reading Time Taken Comments Blood Pressure 117/78 03/02/2023 11:33 AM CDT AUTOMATIC Pulse 73 03/02/2023 11:33 AM CDT Temperature - - Respiratory Rate - - Oxygen Saturation - - Inhaled Oxygen Concentration - - Weight 78.2 kg (172 lb 6.4 oz) 03/02/20 11:33 AM CDT Height 166.4 cm (5' 5.51) 03/02/2023 1 1:33 AM CDT Body Mass Index 28.24 03/02/2023 11:33 AM CDT Plan of Treatment Health Maintenance Due Date Last Done Comments Depression Screening 1985 Hepatitis C Screening 1985 Varicella Vaccines (1 of 2 - 13+ 2-dose series) 1998 HPV Vaccines (1 - 3-dose SCDM series) 2012 DTaP/Tdap/Td Vaccine (2 - Td or Tdap) 07/24/2019 07/24/2009 Cervical Cancer Screening 03/02/2024 03/02/2023, Regular Well Visit/Exam 18-64 03/02/2024 03/02/2023, 09/23/2020, 10/25/2018 Influenza Vaccine (#1) 2025 2, 04/27/2021, 04/23/2020, Additional history exists Hepatitis B Screening Completed 11/30/2010 , 02/08/2010, 12/18/2009 Pneumococcal vaccine <65 Aged Out No longer eligible based on patient's age to complete this topic Procedures Procedure Name Priority Date/Time Associated Diagnosis Comments PAP AND HPV, REFLEX TO HPV GENOTYPES Routine 03/02/2023 2:47 PM CDT Screening for cervical cancer from Last 3 Months or Most Recently Relevant to Health Maintenance Results * Pap and HPV, reflex to HPV Genotypes (03/02/2023 2:47 PM CDT) CLINICAL INFORMATION: SCREENING [facility] 10/21/2018 [facility] Previous Pap NONE GIVEN [facility] Prev. Bx NONE GIVEN [facility] SOURCE: Cervix, Endocervix [facility] Pap, specimen adequacy Satisfactory for evaluation. Endocervical/hernández sformation zone component absent. [facility] HPV interp Cytology Results: Negative for intraepithelial lesion or malignancy. [facility] Brewery Worker PCM, CT(ASCP) CT Screening Location: [place] [address] [place] [address] [facility] Comment [facility] Comment: EXPLANATORY NOTE: The Pap is a screening test for cervical cancer. It is not a diagnostic test and is subject to false negative and false positive results. It is most reliable when a satisfactory sample, regularly obtained, is submitted with relevant clinical findings and history, and when the Pap result is evaluated along with historic and current clinical information. Human papillomavirus DNA, High Risk E6/E7 Not Detected NOT DETECTED [facility] Comment: Not Detected High Risk HPV types (16,18,31,33,35,39,45,51,52, 56,58,59,66,68) were not detected. Other HPV types which cause anogenital lesions may be present. The significance of the other types of HPV in malignant processes has not been established. Methodology: Real Time PCR Thin prep 03/02/2023 2:47 PM CDT 03/03/2023 2:42 PM CDT Sondra Canales NP LAB CYTOLOGY ORDERABLES Final Result [place] [address] [place] [address] [facility] [employer] [address] [place] [phone] from Last 3 Months or Most Recently Relevant to [place] [address] [facility] [place] [place] [address] Care Teams Trip Rider Relationship Specialty Start Date End Date Ana Medina MD [address] [place] [address] [place] [address] PCP - General Family Medicine 12/12/22
[2025-04-02 09:14] LABS: BEDSIDEPREGUCG Negative (Negative)
[2025-04-02 09:19] LABS: Hematocrit 39.9 % (37.0-47.0); Hemoglobin 12.6 g/dL (12.0-15.0); Immature Granulocyte Percent A 0.3 % (0-0.5); Lymphocytes Absolute Auto 0.92 K/mm3 (0.9-3.2); Mean Corpuscular HGB Conc 31.6 g/dl (32-36); Mean Corpuscular Hemoglobin 26.9 pg (26-34); Mean Corpuscular Volume 85.3 fl (80-100); Nucleated Red Blood Cells Absolute Auto 0.000 K/mm3 (0.0-0.012); Nucleated Red Blood Cells Perc 0.0 % (0.0-0.2); Platelet Count Result 200 k/mm3 (150-375); Red Blood Count 4.68 M/mm3 (4.2-5.4); White Blood Count 6.5 K/mm3 (4.5-10.0)
[2025-04-02 09:27] LABS: Add Urine Microscopic? NO; Appearance Urine Clear (Clear); Glucose Urine UA Negative (Negative); Leukocyte Esterase Ur Negative LEU/UL (Negative); Nitrate Urine Negative (Negative); Specific Grav Ur 1.003 (1.001-1.035)
[2025-04-02 09:35] LABS: Alanine Aminotransferase 15 U/L (6-35); Albumin Level 4.4 g/dL (3.5-5.1); Alkaline Phosphatase 62 U/L (38-126); Anion Gap 7 mmol/L (4-12); Aspartate Amino Transferase 29 U/L (14-36); Bilirubin,Total 1.9 mg/dL (0.2-1.3); Blood Urea Nitrogen 18 mg/dL (7-17); Calcium 9.1 mg/dL (8.4-10.2); Carbon Dioxide 27 mmol/L (22-30); Chloride 103 mmol/L (98-107); Estimated CRCL calculation 79 ml/min; Estimated Glomerular Filt Rate > 60; Glucose 91 mg/dL (65-110); Lipase 75 U/L (23-300); Potassium 4.1 mmol/L (3.4-5.0); Sodium 137 mmol/L (137-145); Total Protein 7.8 g/dL (6.3-8.2)
--- OUTSIDE RECORDS SUMMARY | 2025-04-02 10:00 | XMS_ITS | Clinical Summary ---
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 Bx NONE GIVEN [facility] SOURCE: Cervix, Endocervix [facility] Pap, specimen adequacy Satisfactory for evaluation. Endocervical/hernández sformation zone component absent. [facility] HPV interp Cytology Results: Negative for intraepithelial lesion or malignancy. [facility] Coke Inspector PCM, CT(ASCP) CT Screening Location: [place] [address] [place] [id number] [facility] Comment [facility] Comment: EXPLANATORY NOTE: The Pap is a [...] High Risk E6/E7 Not Detected NOT DETECTED [facility] Comment: Not Detected High Risk HPV types (16,18,31,33,35,39,45,51,52, 56,58,59,66,68) were not detected. Other HPV types which cause anogenital lesions may be present. The significance of the other types of HPV in malignant processes has not been established. Methodology: Real Time PCR Thin prep 03/02/2023 2:47 PM CDT 03/03/2023 2:42 PM CDT Sondra Canales NP LAB CYTOLOGY ORDERABLES Final Result [place] [address] [place] [id number] [facility] [employer] [address] [place] [phone] from Last 3 Months or Most Recently Relevant to [place] [address] [place] [address] Care Teams Shell [employer] Molding Supervisor Relationship Specialty Start Date End Date Ana Medina MD [address] [place] [address] [place] [address] PCP - General Family Medicine 12/12/22
--- NOTE | 2025-04-02 10:17 | ED_ITS ---
HPI - Abdominal Pain General Chief Complaint: Abdominal Pain Stated Complaint: ABD CRAMPING X1D Time Seen by Provider: 04/02/25 09:11 Source: patient and RN notes reviewed Mode of arrival: ambulatory Limitations: no limitations History of Present Illness HPI narrative: 39-year-old female presents here complaining of generalized abdominal pain for since last night. Patient says she has a history of GI issues was recently treated for parasitic infection by GI thought it might be related to her recent treatment for that infection. Patient reports that she has sharp pain primarily to the umbilical area of her abdomen. Patient denies any nausea vomiting, diarrhea, fevers, bites, chills, chest pain, shortness of breath, or any other symptoms. Patient denies any other significant past medical history. Related Data Home Medications ?Medication ?Instructions ?Recorded ?Confirmed ?Last Taken ?Type lactobacillus combination no.8 3 3 cell PO DAILY 08/0904/09/24 Unknown History billion cell capsule multivitamin with minerals-folic 1 tablet PO DAILY 04/09/24 Unknown History acid 0.4 mg tablet Allergies Allergy/AdvReac Type Severity Reaction Status Date / Time No Known Allergies Allergy Mild Verified 04/02/25 08:20 Review of Systems 2 Review of Systems: CONSTITUTIONAL: Denies fever, chills, or sweats. EYES: Denies visual changes, redness, or discharge. ENT: Denies rhinorrhea, congestion, sore throat, or otalgia. CARDIOVASCULAR: Denies chest pain, palpitations, or edema. RESPIRATORY: Denies cough or dyspnea. GASTROINTESTINAL: Denies nausea, vomiting, or diarrhea. Positive abdominal pain. GENITOURINARY: Denies dysuria or hematuria. SKIN: Denies rash or itching. MUSCULOSKELETAL: Denies back pain, joint pain, or myalgia. NEUROLOGIC: Denies headache, numbness, or weakness. PSYCHIATRIC: Denies anxiety or depression. All other systems reviewed are negative, except as documented in HPI. [facility], [facility] Past Medical History Medical History Gastritis Obesity GERD (gastroesophageal reflux disease) Surgical History Surgical History History of esophagogastroduodenoscopy (EGD) April 2024 Family History Family History Father Hypertension Sibling PAC (premature atrial contraction) Sibling PVC (premature ventricular contraction) Grandparent Chronic a-fib Grandparent Chronic a-fib Social History Social History Smoking status: Never smoker Second hand tobacco smoke exposure: No Alcohol intake: current Alcohol use details: rarely Substance use: never Substance use type: does not use Lack of Transportation: No Lack of Food: Never True Current Housing: I Have Housing Concerned About Future Housing: No Difficulty Paying Gas/Electric Bills: No Difficulty Paying for Meds: No Currently Unemployed: No Education: Associate Degree Difficulty w/ Childcare or Family Care: No Living arrangements: with family Additional living arrangements comments: [place] Spiritual care concerns: No Comments At the time of my signature, I reviewed and agree with the nursing past medical, surgical, social, and family history. There is no relevant family history pertinent to the patient complaint. Exam 2 Narrative: GENERAL: This is a well-nourished, well-developed adult, in no apparent distress. They are non ill-appearing, nontoxic appearing. HEAD: normocephalic, atraumatic. EYES: Sclera clear/white. Conjunctiva normal. Vision is grossly intact. Extraocular movements intact EARS: External ears normal, Hearing grossly intact. NOSE: External nose normal THROAT: Mucous membranes moist, NECK: Neck supple, . CARDIOVASCULAR: Regular rate and rhythm without murmurs, gallops, or rubs. RESPIRATORY: Clear to auscultation. Breath sounds equal bilaterally. No wheezes, rales, or rhonchi. GASTROINTESTINAL: Abdomen soft, or tenderness to palpation to evaluate the region, nondistended. Bowel sounds are active. No hepato-splenomegaly, or palpable masses. No guarding or rigidity.. No rebound tenderness. SKIN: warm, Dry, intact with no suspicious lesions or rash, good texture and turgor. NEURO: awake, alert, and oriented to person, place and time. There were no obvious focal neurologic abnormalities. EXTREMITIES: No joint tenderness, effusion, or edema noted. Course Course Emergency Course: Portions of this record may have been created with voice recognition software Vital Signs Vital signs: Vital Signs Temperature 98.1 F 04/02/25 08:37 Temperature 98.1 F 04/02/25 08:37 Pulse Rate 60 04/02/25 08:42 Respiratory Rate 18 04/02/25 08:42 Blood Pressure 101/61 04/02/25 08:42 Pulse Oximetry 100 04/02/25 08:42 Reviewed MDM - Abdominal Pain MDM Narrative Medical decision making narrative: CBC unremarkable, no leukocytosis. Slightly elevated bilirubin chemistry otherwise unremarkable. Normal LFTs. Urine without any evidence of infection. Mild tenderness to the umbilical region of the abdomen. No peritoneal findings, no guarding. Given tenderness will obtain CT abdomen and pelvis. CT abdomen pelvis CT reveals no acute intra-abdominal findings. Symptoms likely related to recent parasite therapy. Recommend patient continue take her probiotics to use her dicyclomine as needed for abdominal cramping. Patient has a follow-up within the month with GI. Advised patient to keep scheduled appointment and follow-up with PCP as well. Strict ER precautions test was patient's bed she developed worsening abdominal pain, nausea, vomiting, black tarry stools and vomiting blood, fevers, or any serious concerns. Discussed physical exam findings. Advised supportive measures and signs/symptoms to go to the ER. Pt is appropriate for outpt treatment and f/u. Differential Diagnosis Differential diagnosis: Likely constipation, diverticulitis, gastroenteritis and other (Colitis) Lab Data Attestation: I reviewed the patient's lab results. 04/02/25 09:08 04/02/25 09:08 Labs: Lab Results 04/02/25 04/02/25 Range/Units 09:08 09:12 WBC 6.5 (4.5-10.0) K/mm3 RBC 4.68 (4.2-5.4) M/mm3 Hgb 12.6 (12.0-15.0) g/dL Hct 39.9 (37.0-47.0) % MCV 85.3 (80-100) fl MCH 26.9 (26-34) pg MCHC 31.6 L (32-36) g/dl RDW 13.2 (11.5-14.5) % Plt Count 200 (150-375) k/mm3 MPV 9.0 (7.4-10.4) fl Immature Gran % (Auto) 0.3 (0-0.5) % Neut % (Auto) 77.3 H (45.5-73.1) % Lymph % (Auto) 14.1 L (18.3-44.2) % [place] % (Auto) 5.5 (2.6-8.5) % Eos % (Auto) 2.3 (0-4.4) % Baso % (Auto) 0.5 (0.2-1.2) % Lymph # (Auto) 0.92 (0.9-3.2) K/mm3 [place] # (Auto) 0.4 (0.1-0.6) K/mm3 Eos # (Auto) 0.2 (0-0.3) K/mm3 Baso # (Auto) 0.0 (0.0-0.1) K/mm3 Abs Immat Gran (auto) 0.02 (0.00-0.031) K/mm3 Absolute Neuts (auto) 5.1 (1.3-6.7) K/mm3 Absolute Nucleated RBC 0.000 (0.0-0.012) K/mm3 Nucleated RBC % 0.0 (0.0-0.2) % Sodium 137 (137-145) mmol/L Potassium 4.1 (3.4-5.0) mmol/L Chloride 103 (98-107) mmol/L Carbon Dioxide 27 (22-30) mmol/L Anion Gap 7 (4-12) mmol/L BUN 18 H (7-17) mg/dL Creatinine 0.78 (0.7-1.0) mg/dL Estim Creat Clear Calc 79 ml/min Estimated GFR > 60 (59 - ) Glucose 91 (65-110) mg/dL Calcium 9.1 (8.4-10.2) mg/dL Total Bilirubin 1.9 H (0.2-1.3) mg/dL AST 29 (14-36) U/L ALT 15 (6-35) U/L Alkaline Phosphatase 62 (38-126) U/L Total Protein 7.8 (6.3-8.2) g/dL Albumin 4.4 (3.5-5.1) g/dL Lipase 75 (23-300) U/L Urine Color Yellow (Yellow) Urine Appearance Clear (Clear) Urine pH 6.5 (5.0-9.0) Ur Specific [place] 1.003 (1.001-1.035) Urine Protein Negative (Negative) mg/dL Urine Glucose (UA) Negative (Negative) mg/dL Urine Ketones Negative (Negative) mg/dL Ur Blood (Man) Negative (Negative) Urine Nitrate Negative (Negative) Urine Bilirubin Negative (Negative) Urine Urobilinogen 0.2 (<2.0) mg/dL Leukocyte Esterase Rfl Negative (Negative) BRIGITTE/UL POC Urine HCG, Qual Negative (Negative) Imaging Data Radiologist's impression: ITS Impressions Abdomen/Pelvis CT 04/02/25 10:49 IMPRESSION: 1. No acute findings. Critical Care Time Critical Care Time Critical Care Time: No Discharge Plan Discharge Clinical Impression: Abdominal pain Qualifiers: Abdominal location: generalized Qualified Code(s): R10.84 - Generalized abdominal pain Patient Disposition: Home Condition: Stable Instructions: Antibiotic Form, Abdominal Pain (ED) Additional Instructions: Your lab work and urine are reassuring. Your CT abdomen pelvis did not show any acute intra-abdominal findings. Please continue taking medicine as directed for a abdominal cramping. Follow-up with your GI doctor as scheduled. Your PCP in 3-5 days. If you develop worsening abdominal pain, fevers, nausea, vomiting, diarrhea, black tarry stools, vomiting blood, or any serious concerns please go to the ER immediately. Patient Language: Urdu Prescriptions: No Action multivit with min-folic acid 0.4 mg Tablet 1 tablet PO DAILY lactobacillus combination no.8 3 billion cell Capsule 3 cell PO DAILY Follow-up/Referrals: Ramon,Kristan Grey, DIRECTOR [employer]PERATIONS [Primary Care Provider, Unknown] Time of Disposition: 11:21
[2025-04-02 11:42] VITALS: BP 115/74; PULSE 72; RESP 16; O2SAT 100
== END 2025-04-02 11:44 | disposition home or self-care (01) ==
PROVIDERS: Emergency Medicine
DX: R10.84 Generalized abdominal pain (principal); K21.9 Gastro-esophageal reflux disease without esophagitis
CPT/HCPCS: 36415; 74177; 80053; 81003; 81025; 83690; 85025; 99284; Q9967